=== PATIENT | female | born 1945 | race Caucasian/White ===

== ENCOUNTER 2019-10-26 10:58 | Inpatient (IN) | payer OTHER ==
[~2019-10-26] VITALS: Ht 162.6 cm; Wt 68.9 kg
[2019-10-26 11:22] VITALS: Ht 162.6 cm; Wt 68.9 kg
[2019-10-26 11:33] LABS: BASOPHIL % 0.8 % (0-2); PLATELET COUNT 304 x10^3mcL (130-400)
[2019-10-26 11:38] LABS: RED CELL DISTRIBUTION WIDTH 15.9 % (11.5-14.5)
[2019-10-26 11:43] LABS: CALCIUM 8.3 mg/dL (8.5-10.1); CARBON DIOXIDE 30.7 mmol/L (21-32); CHLORIDE SERUM 99 mmol/L (98-107); CREATININE SERUM 0.8 mg/dL (0.6-1.0); GLUCOSE SERUM 91 mg/dL (74-106); SODIUM SERUM 135 mmol/L (136-145)
[2019-10-26 11:48] LABS: ALKALINE PHOSPHATASE 76 U/L (46-116); ALT/SGPT 12 U/L (14-59); AST/SGOT 19 U/L (15-37); BILIRUBIN TOTAL 0.3 mg/dL (0.20-1.00); TOTAL PROTEIN, SERUM 6.9 g/dL (6.4-8.2)
[2019-10-26 11:49] LABS: ALBUMIN 2.9 g/dL (3.4-5.0)
[2019-10-26] MEDS ORDERED: ZESTRIL40 MG PO (13:40)
[2019-10-26] MEDS ORDERED: A200/25 PO (13:41)
[2019-10-26] MEDS ORDERED: CARBIDOPA AND L1 TER PO (13:42)
[2019-10-26] MEDS ORDERED: KEPPRA1000 M1 PO (13:44)
[2019-10-26] MEDS ORDERED: ZYPREXA2.5 M1 PO (13:44)
[2019-10-26] MEDS ORDERED: LEXAPRO5 M1 PO (13:44)
[2019-10-26] MEDS ORDERED: ROPINIROLE HYDRO1 MG PO (13:45)
[2019-10-26] MEDS ORDERED: AMBIEN5 MG PO (13:46)
[2019-10-26] MEDS ORDERED: CLONIDINE HYDR0.1 M1 PO (13:46)
[2019-10-26] MEDS ORDERED: QVAR REDIHALE10.6 G1 INH (13:47)
[2019-10-26 14:56] LABS: CHOLESTEROL/HDL RATIO 3.1
[2019-10-26 15:05] LABS: FREE T4 0.8 ng/dL (0.76-1.46); FREE THYROXINE INDEX 1.6 ug/dL (1.4-4.5); T4(THYROXINE) 4.8 ug/dL (4.7-13.3)
[2019-10-26 15:07] LABS: T3 TOTAL 0.88 ng/mL
[2019-10-26 15:19] VITALS: BP 171/78
[2019-10-26 18:54] VITALS: BP 159/54
[2019-10-26 20:23] VITALS: BP 156/55
[2019-10-27 01:37] LABS: UA SPECIFIC GRAVITY <=1.005 (1.005-1.035); microscopic required? YES; urine erythrocyte 1+ (NEGATIVE)
[2019-10-27 01:52] LABS: AMPHETAMINE QUAL UR NONE DETECTED (See below)
[2019-10-27 05:17] VITALS: BP 151/62
[2019-10-27 06:11] LABS: BASOPHIL % 0.9 % (0-2); PLATELET COUNT 325 x10^3mcL (130-400)
[2019-10-27 06:27] LABS: RED CELL DISTRIBUTION WIDTH 16.2 % (11.5-14.5)
[2019-10-27 06:42] LABS: CALCIUM 8.4 mg/dL (8.5-10.1); CARBON DIOXIDE 29.6 mmol/L (21-32); CHLORIDE SERUM 100 mmol/L (98-107); CREATININE SERUM 0.8 mg/dL (0.6-1.0); GLUCOSE SERUM 88 mg/dL (74-106); MAGNESIUM 1.9 mg/dL (1.8-2.4); PHOSPHOROUS 3.9 mg/dL (2.5-4.9); POTASSIUM SERUM 4.9 mmol/L (3.5-5.1); SODIUM SERUM 136 mmol/L (136-145)
[2019-10-27 18:00] VITALS: BP 132/71
[2019-10-27 19:42] VITALS: BP 179/59
[2019-10-27 21:04] VITALS: BP 124/44
[2019-10-28 06:03] VITALS: BP 139/57
[2019-10-28 07:08] LABS: CALCIUM 8.2 mg/dL (8.5-10.1); CARBON DIOXIDE 29.1 mmol/L (21-32); CHLORIDE SERUM 99 mmol/L (98-107); CREATININE SERUM 0.7 mg/dL (0.6-1.0); GLUCOSE SERUM 79 mg/dL (74-106); MAGNESIUM 1.8 mg/dL (1.8-2.4); PHOSPHOROUS 3.4 mg/dL (2.5-4.9); POTASSIUM SERUM 4.1 mmol/L (3.5-5.1); SODIUM SERUM 134 mmol/L (136-145)
[2019-10-28 07:26] VITALS: BP 148/57
[2019-10-28 07:29] LABS: BASOPHIL % 1.1 % (0-2); PLATELET COUNT 281 x10^3mcL (130-400)
[2019-10-28 07:32] LABS: RED CELL DISTRIBUTION WIDTH 16.3 % (11.5-14.5)
[2019-10-28 11:26] VITALS: BP 139/62
[2019-10-28 19:52] VITALS: BP 155/51
[2019-10-29 05:23] VITALS: BP 144/56
[2019-10-29 06:41] LABS: BASOPHIL % 0.8 % (0-2); PLATELET COUNT 280 x10^3mcL (130-400)
[2019-10-29 07:02] VITALS: BP 128/59
[2019-10-29 07:13] LABS: CHLORIDE SERUM 101 mmol/L (98-107); CREATININE SERUM 0.8 mg/dL (0.6-1.0); GLUCOSE SERUM 115 mg/dL (74-106); MAGNESIUM 1.8 mg/dL (1.8-2.4); PHOSPHOROUS 2.9 mg/dL (2.5-4.9); POTASSIUM SERUM 4.2 mmol/L (3.5-5.1); SODIUM SERUM 137 mmol/L (136-145)
[2019-10-29] MEDS ORDERED: NOR5 PO (10:06)
[2019-10-29] MEDS ORDERED: LIPI10 PO (10:06)
[2019-10-29] MEDS ORDERED: SYN25 PO (10:07)
[2019-10-29 11:25] VITALS: BP 130/60
[2019-10-29 16:21] VITALS: BP 151/53
[2019-10-29 21:02] VITALS: BP 148/51
[2019-10-30 06:03] VITALS: BP 152/54
[2019-10-30 07:22] VITALS: BP 193/57
[2019-10-30 09:30] VITALS: BP 133/42
[2019-10-30 13:14] VITALS: BP 172/44
[2019-10-30 15:42] VITALS: BP 120/59
[2019-10-30 20:19] VITALS: BP 129/84
[2019-10-31 05:08] VITALS: BP 141/57
[2019-10-31 10:24] VITALS: BP 128/76
[2019-10-31 20:22] VITALS: BP 143/50
[2019-11-01] VITALS (7 sets, daily range): BP systolic 128–179; BP diastolic 51–76
== END 2019-11-01 20:35 | disposition short-term general hospital (02) | DRG 313 ==
LOC: ED 10:58 → MU 13:29 → DU 13:29 → MU 10-29 17:14
PROVIDERS: Emergency Medicine; ADMIT Family Medicine
DX: R07.89 Other chest pain (principal); E87.1 Hypo-osmolality and hyponatremia; E44.0 Moderate protein-calorie malnutrition; I11.9 Hypertensive heart disease without heart failure; I25.10 Atherosclerotic heart disease of native coronary artery without angina pectoris; F32.9 Major depressive disorder, single episode, unspecified; F41.8 Other specified anxiety disorders; G47.00 Insomnia, unspecified; J44.9 Chronic obstructive pulmonary disease, unspecified; G40.909 Epilepsy, unspecified, not intractable, without status epilepticus; F03.90 Unspecified dementia, unspecified severity, without behavioral disturbance, psychotic disturbance, mood disturbance, and anxiety; Z99.81 Dependence on supplemental oxygen; Z68.25 Body mass index [BMI] 25.0-25.9, adult; Z86.73 Personal history of transient ischemic attack (TIA), and cerebral infarction without residual deficits
CPT/HCPCS: 83880; 84439; 85378; 90732; A9500; G0378; J1885; J2405; J2785; Q0092; Q9967